=== PATIENT | female | born 1950 | race Caucasian/White ===

== ENCOUNTER 2017-01-08 17:41 | Inpatient (IN) | payer MEDICARE ==
[~2017-01-08] VITALS: Ht 167.6 cm; Wt 82.1 kg
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
[~2017-01-08 17:41] MED LIST: ACETAMINOPHEN325 MG NG; ATIVAN1 MG PO; CALCIUM 500 + D1 TAB PO; CARDIZEM CD180 MG PO; CLARITIN 10 MG10 MG PO; COUMADIN5 MG PO; CYMBALTA30 MG PO; FLUTICASONE PRO16 GM NS; HYDROCODONE-APA1 TAB PO; LIDODERM 5 %1 PATCH TD; LIPITOR40 MG PO; LOPRESSOR25 MG PO; MIRALAX17 GM PO; OXYBUTYNIN CHLOR5 MG PO; OXYCONTIN10 MG PO; PHENERGAN25 M1 PO; ROBAXIN-750750 MG PO; SENNA PLUS TA1 UDTAB PO; VITAMIN D31000 UNI2 PO
[2017-01-08 19:42] VITALS: BP 142/84
[2017-01-08] MEDS ORDERED: HYDROCODONE-APA1 TAB PO ×2 (20:05→20:09)
[2017-01-08] MEDS ORDERED: FISH OIL 1,0001 CA1 PO (20:05)
[2017-01-08] MEDS ORDERED: LASIX40 MG PO (20:06)
[2017-01-08] MEDS ORDERED: ATIVAN0.5 MG PO (20:07)
[2017-01-08] MEDS ORDERED: IPRAT-ALBUT 0.5-3 ML UPD (20:09)
[2017-01-08] MEDS ORDERED: MUCINEX600 MG PO (20:10)
[2017-01-08] MEDS ORDERED: VITAMIN C WITH500 M1 PO (20:11)
[2017-01-08] MEDS ORDERED: PREVACID15 MG PO (20:11)
[2017-01-08] MEDS ORDERED: FAMOTIDINE10 MG PO (20:12)
[2017-01-08 20:13] LABS: BASOPHILS 0.2 % (0.0-2.0); HEMATOCRIT 40.2 % (36.0-48.0); HEMOGLOBIN 12.9 g/dL (12-16); IMMATURE GRANULOCYTES 0.2 % (0-5); MCH 27.1 pg (26.0-34.0); MCHC 32.1 g/dL (31.0-37.0); MCV 84.5 fL (80.0-100.0); MEAN PLATELET VOLUME 10.5 fL (7.4-10.4); MONOCYTES 7.7 % (2-11); NEUTROPHILS 70.9 % (40-80); PLATELET COUNT 295 10x3/uL (130-400); RBC 4.76 10x6/uL (4.00-5.40); RDW 16.2 % (11.5-14.5); WBC 12.9 10x3/uL (4.8-10.8)
[2017-01-08] MEDS ORDERED: MULTIPLE VITAMI1 TA1 PO (20:13)
[2017-01-08] MEDS ORDERED: METOPROLOL TART50 MG PO (20:13)
[2017-01-08] MEDS ORDERED: CYMBALTA30 MG PO (20:14)
[2017-01-08 20:15] LABS: INR 1.7 (0.85-1.17)
[2017-01-08] MEDS ORDERED: DITROPAN X5 MG/BOTTL PO (20:15)
[2017-01-08] MEDS ORDERED: FLUTICASONE PRO16 GM NASAL (20:18)
[2017-01-08] MEDS ORDERED: LIPITOR40 MG PO (20:19)
[2017-01-08] MEDS ORDERED: MIRALAX17 GM PO (20:20)
[2017-01-08] MEDS ORDERED: LYRICA75 MG PO (20:20)
[2017-01-08] MEDS ORDERED: K-DUR20 MEQ PO (20:21)
[2017-01-08] MEDS ORDERED: NORVASC5 MG PO (20:21)
[2017-01-08] MEDS ORDERED: PROVENTIL HFA6.7 GM INH (20:23)
[2017-01-08 20:24] LABS: HEMOGLOBIN A1C 6.2 % (4.8-6.0)
[2017-01-08] MEDS ORDERED: SENOKOT-S TABLE1 TAB PO (20:25)
[2017-01-08] MEDS ORDERED: TUMS500 MG PO (20:27)
[2017-01-08] MEDS ORDERED: VISTARIL25 MG PO (20:29)
[2017-01-08] MEDS ORDERED: SCOT-TUSSI10 MG/5 ML PO (20:29)
[2017-01-08 20:30] LABS: ALBUMIN 2.9 g/dL (3.4-5.0); ANION GAP 13.2 mmol/L (8-16); BILIRUBIN - TOTAL 0.44 mg/dL (0.2-1.3); CALCIUM 8.8 mg/dL (8.5-10.1); CARBON DIOXIDE 26.6 mmol/L (21.0-32.0); LDL-HDL RATIO 2.8 ratio (1.5-3.5); POTASSIUM - SERUM 3.8 mmol/L (3.5-5.1); PROTEIN - SERUM 7.7 g/dL (6.4-8.2); THYROID STIMULATING HORMONE 0.79 uIU/mL (0.36-3.74)
[2017-01-08] MEDS ORDERED: ZOFRAN8 MG PO (20:30)
[2017-01-08 20:38] VITALS: BP 143/72; BMI 29.3
[2017-01-08 22:18] VITALS: BP 142/84
--- NOTE | 2017-01-09 01:20 | NUR ---
B) Recieved in the hallway outside the nurses station, alert and oriented, calm and cooperative, new admit, I) No medications this shift, R) cooperative and friendly, P) Continue plan of care.
--- NOTE | 2017-01-09 07:44 | NUR ---
B) PATIENT IS AWAKE AND ALERT, SHE IS ORIENTED X3. SHE DOES SPEAK HER MIND. HER LUNGS ARE WET AND HAS EXPIRATORY WHEEZES. SHE IS NOT ABLE TO STAND WITHOUT ASSIST, SHE CAN SELF PROPEL IN HER W/C. I) PROVIDE PRESCRIBED MEDS, REDIRECT NEEDED. R) PATIENT IS COMPLIANT WITH MEDS AND UNIT MILIEU. P) CONTINUE PLAN OF CARE.
[2017-01-09 09:00] VITALS: BP 163/95
[2017-01-09 09:14] VITALS: BP 163/95
--- NOTE | 2017-01-09 09:48 | NUR ---
CALLED PATIENT'S MOTHER TO LET HER KNOW PHONE CALL TIMES AND VISITATION DAYS AND TIMES.
[2017-01-09 19:05] LABS: APPEARANCE HAZY (CLEAR); COLOR YELLOW (YELLOW); LEUKOCYTE ESTERASE TRACE (NEGATIVE); NITRITE NEGATIVE (NEGATIVE); PROTEIN TRACE mg/dL (NEGATIVE); SPECIFIC GRAVITY 1.015 (1.005-1.020)
[2017-01-09 19:06] LABS: BACTERIA MODERATE /hpf (NONE SEEN); BILIRUBIN NEGATIVE (NEGATIVE); GLUCOSE NEGATIVE (NEGATIVE); KETONE NEGATIVE (NEGATIVE); RED CELLS - URINE 0-5 /hpf (0-5); UROBILINOGEN NORMAL (NORMAL)
[2017-01-09 19:30] VITALS: BP 135/71
--- NOTE | 2017-01-10 01:18 | NUR ---
B) Recieved sitting in the day room alert and oriented X 3, calm and cooperative, reported leg pain but was okay with waiting on scheduled pain medications, I) Administered perscribed medications, administered PRN Zofran 8 mg for nausea with scheduled medications, R) medication compliant, friendly and cooperative. P) Continue plan of care, continue to monitor.
--- NOTE | 2017-01-10 05:23 | NUR ---
PRN TYLENOL 650 MG PO GIVEN FOR LEG PAIN AT 0519.
[2017-01-10 06:59] LABS: INR 1.51 (0.85-1.17); PROTIME 18.1 SECONDS (11.6-15.0)
[2017-01-10 07:30] VITALS: BP 155/75
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
[2017-01-10 19:30] VITALS: BP 169/94
--- NOTE | 2017-01-10 20:03 | NUR ---
RECEIVED IN DAYROOM. SETTING AT TABLE WITH STAFF AND PEERS. O2 ON @ 2L/M VIA NC. CALM AND COOPERATIVE WITH CARE AND ASSESSMENTS. NO SIGNS OF ANXIETY. SOME REMARKS MADE ABOUT A PEERS BEHAVIOR. ENCOURAGE TO EXPRESS NEEDS. CONTINUES TO SET AT TABLE. CONTINUE PLAN OF CARE
[2017-01-11 06:12] LABS: INR 1.53 (0.85-1.17); PROTIME 18.4 SECONDS (11.6-15.0)
[2017-01-11 10:12] LABS: VITAMIN D 25 HYDROXY 36.8 ng/mL (30.0-100.0)
[2017-01-11 11:40] VITALS: BP 138/76
[2017-01-11 13:47] LABS: FOLATE (FOLIC ACID) - SERUM 13.2 ng/mL (>3.0)
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
--- NOTE | 2017-01-11 17:19 | NUR ---
ASSISTED UP TO WHEELCHAIR PER ONE.IS ORIENTED X 3.IS COMPLIANT WITH MEDS AND STAFF.PROPELLS SELF IN WHEELCHAIR.WILL CONTINUE WITH PLAN OF CARE,MONITOR FOR CHANGES AND SAFETY.
[2017-01-11 19:30] VITALS: BP 151/83
--- NOTE | 2017-01-11 19:58 | NUR ---
RECEIVED IN DAYROOM. SETTING AT TABLE IN WHEELCHAIR WITH STAFF. ALERT AND ORIENTED X3. SOCIALIZING WITH PEERS. IN GOOD SPIRITS. CALM AND COOPERATIVE WITH CARE AND ASSESSMENT. ENCOURAGE TO EXPRESS NEEDS. CONTINUES TO SET AT TABLE WITH STAFF SOCIALIZING. CONTINUE PLAN OF CARE
[2017-01-12 06:41] LABS: INR 1.69 (0.85-1.17); PROTIME 19.8 SECONDS (11.6-15.0)
[2017-01-12 10:15] LABS: RAPID PLASMA REAGIN Non Reactive (Non Reactive)
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
[2017-01-12 11:08] VITALS: Ht 167.6 cm; Wt 82.1 kg
--- NOTE | 2017-01-12 12:57 | PN ---
PATIENT:QIAN PAT MEDICAL RECORD: [id number] LOCATION:[facility] ADMISSION DATE: 01/08/17 PROGRESS NOTE DATE OF SERVICE: 01/11/2017 SUBJECTIVE: The patient's case was discussed with staff. She has no new complaint. OBJECTIVE: The patient denies that she would seek to harm herself or others. She generally tolerates her medicines well. She is actually oriented to person, place, time and situation. She is mildly mistaken about the date, but not in a way that is serious. The patient continues to tell the same story about why or how she became so frustrated or aggravated at the assisted. So far, these behaviors or aggravations has not generalized to other patients here. She is not showing any behavior problems. I am going to have her tested by Dr. Terrie Manley, but at this point, I am not going to take an aggressive stance with her pharmacologically. I have reviewed her medicines. I am going to maintain them I would like to see her on fewer pain medicines, but I have not approached that subject with her yet as I have just had a couple of days to try to establish some therapeutic rapport with her. TRANSINT:[id number] Voice Confirmation ID: [id number] DOCUMENT ID: [id number] LUIS ALFREDO MENENDEZ MD at 1257 CC: [id number] DICTATION DATE: 01/11/17 1414 SUPERVISOR PUBLIC MESSAGE SERVICE: 01/11/172125 ADM IN [place] [id number] [place] [address]
[2017-01-12 13:55] VITALS: BP 138/76
[2017-01-12 20:00] VITALS: BP 138/93
--- NOTE | 2017-01-12 20:15 | NUR ---
RECEIVED IN DINING ROOM. SETTING AT TABLE BY HERSELF READING A BOOK. ALERT AND ORIENTED. CALM AND COOPERATIVE WITH CARE AND ASSESSMENTS. NO SIGNS OF ANXIETY. ENCOURAGE TO EXPRESS NEEDS. CONTINUES TO REST QUIETLY AT TABLE. CONTINUE PLAN OF CARE
[2017-01-13 08:00] VITALS: BP 135/97
--- NOTE | 2017-01-13 08:40 | PN ---
PATIENT:QIAN PAT MEDICAL RECORD: [id number] LOCATION:[facility] ADMISSION DATE: 01/08/17 PROGRESS NOTE DATE OF SERVICE: 01/12/2017 SUBJECTIVE: The patient's case was discussed with staff. She has no new complaint. OBJECTIVE: The patient denies intent to harm herself or others. She is tolerating her medicines well. ASSESSMENT: No change in diagnoses. PLAN: Current medicines and therapies have been reviewed and will be maintained. I am going to increase her dose of Cymbalta slightly. She will be monitored for clinical changes associated with its use. TRANSINT:[id number] Voice Confirmation ID: [id number] DOCUMENT ID: [id number] LUIS ALFREDO MENENDEZ MD at 0840 CC: [id number] DICTATION DATE: 01/12/17 1308 BOAT OFFICER: 01/12/17 2129 ADM IN [place] [id number] [place] [id number]
[2017-01-13 09:13] LABS: INR 1.48 (0.85-1.17); PROTIME 17.8 SECONDS (11.6-15.0)
--- NOTE | 2017-01-13 10:55 | NUR ---
B) Patient is awake and alert, she c/o 10/10 all the time. This am she said her pain is in her left leg. Patient can self propel in her w/c at times. Oriented x3, Patient asked about her appointment for her knee, called [facility] and spoke to Zoila and she says if she is not here in am she will reschedule. I) Provide prescribed meds. R) Patient is compliant with meds and she did ask about her pain patch. Explained to her that she will get that on Wednesday. P) Continue plan of care.
--- NOTE | 2017-01-13 14:00 | NUR ---
Changed patient's picc line dressing. Also noticed patient's IV antibiotic was discontinued and a by mouth antibiotic was ordered instead.
--- NOTE | 2017-01-13 16:07 | NUR ---
Patient c/o pain in legs rates it 10.5 out of 10 on pain scale. Looked at MAR and explained to her that she did not have any prn pain med except Tylenol, she also has ativan and haldol. Patient decided to take ativan 0.5 mg po at this time. Patient has not made any facial grimacing and have seen her nodding off intermittantly.
--- NOTE | 2017-01-13 16:40 | NUR ---
Patient says her pain is 10 still, but she is eating and interacting easily with others.
[2017-01-13 19:57] VITALS: BP 166/84
--- NOTE | 2017-01-14 00:29 | NUR ---
B) Recieved sitting in a wheel chair, alert and oriented X3, calm and cooperative with staff, I) Administered perscribed medication, provided one on one conversation time, R) Medication compliant, friendly and pleasant, P) Continue plan of care.
[2017-01-14 08:15] LABS: INR 1.7 (0.85-1.17); PROTIME 19.9 SECONDS (11.6-15.0)
--- NOTE | 2017-01-14 11:45 | NUR ---
Patient has stated she twisted herself in the bathroom and she says she is hurting more. She just had a [place] at around 10 am and she did have a Tylenol at 0630 am, explained that it is too early to give any prn's, she said "Oh well, my problem".
--- NOTE | 2017-01-14 12:00 | NUR ---
B) Patient is blunted in affect she says she hurts at 10/10 all the time, but she is groggy most of the day. she is oriented times 3 and she is pleasant and does try to help others be more positive. Patient's lungs still have wheezes bilaterally. Patient is able to self propel in w/c, she is on 02 at 2L/M per n/c. I) Provide prescribed meds. R) Patient compliant with meds and groups. She has not made any aggressive remarks today. P) Continue plan of care.
--- NOTE | 2017-01-14 14:24 | PN ---
PATIENT:QIAN PAT MEDICAL RECORD: [id number] LOCATION:[facility] ADMISSION DATE: 01/08/17 PROGRESS NOTE DATE OF SERVICE: 01/13/2017 SUBJECTIVE: The patient's case was discussed with staff. She has no new complaint. OBJECTIVE: The patient is in good behavioral control. She is also oriented to person, place and time. Her mood is flat. Her affect is appropriate. Thought processes are goal directed. ASSESSMENT: No change in diagnoses. PLAN: The patient has not been aggressive today. Her long-term prognosis is guarded. TRANSINT:[id number] Voice Confirmation ID: [id number] DOCUMENT ID: [id number] LUIS ALFREDO MENENDEZ MD at 1424 CC: [id number] DICTATION DATE: 01/13/17 1303 HELPER/DRIVER: 01/13/17 1654 ADM IN [facility] [address] [place] [id number]
[2017-01-14] MEDS ORDERED: COUMADIN6 MG PO (14:33)
[2017-01-14] MEDS ORDERED: MACROBID100 MG PO (14:33)
[2017-01-14] MEDS ORDERED: CYMBALTA20 MG PO (14:34)
[2017-01-14] MEDS ORDERED: DURAGESIC1 PATCH .4 TRANSDERM (14:35)
[2017-01-14] MEDS ORDERED: ASPERCREME 5 OZ5 OZ TP (14:35)
[2017-01-14] MEDS ORDERED: FLORASTOR250 MG PO (14:36)
[2017-01-14 19:00] VITALS: BP 135/89
--- NOTE | 2017-01-15 03:08 | NUR ---
b) Recieved sitting in the day room, alert and oriented X 3, stated she needed pain medication but would wait for scheduled pain medications, I) Administered perscribed medications and PRN Tums, R) Medication compliant, social with staff (she gets my jokes) P) Continue plan of care.
[2017-01-15 07:32] LABS: INR 1.69 (0.85-1.17); PROTIME 19.9 SECONDS (11.6-15.0)
[2017-01-15 08:00] VITALS: BP 151/92
--- NOTE | 2017-01-15 11:19 | NUR ---
Attempted to get stool for specimen, but patient voided urine in hat that also collected stool.
--- NOTE | 2017-01-15 11:42 | NUR ---
FAXED ORDER AND MAR TO [facility], MADE HARD COPY TO GIVE PATIENT TO HAND CARRY.
--- NOTE | 2017-01-15 12:07 | NUR ---
REPORT CALLED TO VELVET GLASS LPN. NUMBER LEFT IF FURHTER INFORMATION IS NEEDED.
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
--- NOTE | 2017-01-15 16:50 | NUR ---
DISCHARGED TO [facility] ACCOMPANIED BY [facility] STAFF VIA FACILITY VEHICLE. PERSONAL BELONGINGS RETURNED TO PATIENT. DISCHARGE PAPERWORK FAXED TO FACILITY AND COPY SENT WITH FACILITY STAFF. CONDITION STABLE AT TIME OF DISCHARGE.
--- NOTE | 2017-01-17 06:10 | PN ---
PATIENT:QIAN PAT MEDICAL RECORD: [id number] LOCATION:[facility] ADMISSION DATE: 01/08/17 PROGRESS NOTE DATE OF SERVICE: 01/15/2017 SUBJECTIVE: No new complaint. OBJECTIVE: The patient is scheduled for discharge today. She has been stable. She is taking medications voluntarily. No further aggressiveness has been noted. On exam, mood is euthymic. Affect is bland. Speech is somewhat terse. Content of thought is negative for overt psychosis. Sensorium is unchanged. ASSESSMENT: No change in diagnosis. PLAN: The patient is scheduled for discharge later today. TRANSINT:[id number] Voice Confirmation ID: [id number] DOCUMENT ID: [id number] HANNAH IBANEZ III, MD at 0610 CC: [id number] DICTATION DATE: 01/15/17 1155 PARALEGALS: 01/15/17 1810 DIS IN 01/15/17 [facility] [address] [place] [address]
--- NOTE | 2017-01-18 14:11 | PN ---
PATIENT:QIAN PAT MEDICAL RECORD: [id number] LOCATION:[facility] ADMISSION DATE: 01/08/17 PROGRESS NOTE DATE OF SERVICE: 01/14/2017 SUBJECTIVE: The patient's case was discussed with staff. She has no new complaint. OBJECTIVE: The patient denies intent to harm herself or others. She generally tolerates her medicines well. She has not been aggressive today, but continues to be quite restless and anxious. ASSESSMENT: No change in diagnoses. PLAN: The patient is going to be transitioned out of the hospital tomorrow. She has not shown any evidence of aggression or dangerousness. I think she can reasonably be returned to the snf without any concerns about safety acutely. TRANSINT:[id number] Voice Confirmation ID: [id number] DOCUMENT ID: [id number] LUIS ALFREDO MENENDEZ MD at 1411 CC: [id number] DICTATION DATE: 01/14/17 1523 TIP PRINTER: 01/14/17 1540 DIS IN 01/15/17 [place] [id number] [place] [address]
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
== END 2017-01-15 16:50 | DRG 57 ==
LOC: D.PSYCH 17:41
PROVIDERS: Family Medicine; ADMIT Psychiatry & Neurology Psychiatry
PROC: 05HB33Z Insertion of Infusion Device into Right Basilic Vein, Percutaneous Approach (ICD-10-PCS; principal; 2017-01-11)
PROC: B54MZZA Ultrasonography of Right Upper Extremity Veins, Guidance (ICD-10-PCS; 2017-01-11)
DX: I69.919 Unspecified symptoms and signs involving cognitive functions following unspecified cerebrovascular disease (principal); F01.51 Vascular dementia, unspecified severity, with behavioral disturbance; I69.954 Hemiplegia and hemiparesis following unspecified cerebrovascular disease affecting left non-dominant side; N39.0 Urinary tract infection, site not specified; M48.56XA Collapsed vertebra, not elsewhere classified, lumbar region, initial encounter for fracture; E78.5 Hyperlipidemia, unspecified; I11.0 Hypertensive heart disease with heart failure; I50.9 Heart failure, unspecified; J44.9 Chronic obstructive pulmonary disease, unspecified; F41.9 Anxiety disorder, unspecified; K29.70 Gastritis, unspecified, without bleeding; Z74.09 Other reduced mobility; K59.00 Constipation, unspecified; N32.81 Overactive bladder; F32.9 Major depressive disorder, single episode, unspecified; J30.9 Allergic rhinitis, unspecified; B96.20 Unspecified Escherichia coli [E. coli] as the cause of diseases classified elsewhere